=== PATIENT | female | born 1950 | race Caucasian/White ===

== ENCOUNTER 2018-09-09 11:47 | Emergency (ER) | payer OTHER ==
--- OUTSIDE RECORDS SUMMARY | 2018-09-09 11:49 | XMS REPORT | Summary of Care ---
:1950 Author Organization [facility] Address [address] [place] [id number]- Encounter HQ Encntr_alias(FIN) [id number] Date(s): 01/10/18 - 01/11/[address] [facility] [address] [place] [address], [address] [address]- [phone] Vital Signs No data available for this section Problem List Condition Effective Dates Status Health Status Informant CAD (coronary artery Resolved disease)(Confirmed) Edema(Confirmed) Resolved HTN (hypertension)(Confirmed) Resolved Morbid obesity(Confirmed) Active Allergies, Adverse Reactions, Alerts Substance Reaction Severity Status sulfa drugs Active azithromycin Active morphine Active Medications liothyronine 25 mcg oral tablet 25 microgram=1 tab, PO, Daily, # 90 tab, 0 Refill(s), Pharmacy: [facility] Start Date: 04/10/18 Status: OrderedNeurontin 100 mg oral capsule 100 mg=1 cap, PO, TID, # 90 cap, 3 Refill(s), Pharmacy: [facility] Start Date: 01/10/18 Status: Ordered Results No data available for this section Immunizations No data available for this section Procedures Procedure Date Related Diagnosis Body Site Status Cholecystectomy Completed Stent1 Completed BG BSO - Total abdominal hysterectomy and Completed bilateral salpingo-oophorectomy Tonsillectomy Completed 1x4 Social History Social History Type Response Smoking Status Heavy tobacco smoker; Exposure to Tobacco Smoke None; Cigarette Smoking Last 365 Days No; Reg Smoking Cessation Counseling No1 entered on: 06/03/16 1quit 9 yrs ago Assessment and Plan No data available for this section
--- OUTSIDE RECORDS SUMMARY | 2018-09-09 11:49 | XMS REPORT ---
:1950 Author Organization eClinicalWorks Care Team Providers Name Role Phone Ady Isabella Provider Role Unavailable Allergies No Known Allergies Problems Problem Type Condition Code Onset Dates Condition Status Problem Circulation problem I99.9 Active Problem Hyperlipidemia, unspecified E78.5 Active hyperlipidemia type Problem Hypothyroidism, unspecified type E03.9 Active Problem Hypertension, unspecified type I10 Active Problem Coronary artery disease involving I25.119 Active [place] coronary artery of [place] heart with angina pectoris Problem Diverticulitis K57.92 Active Problem Pain in right knee M25.561 Active Problem Hyperglycemia R73.9 Active Problem High cholesterol E78.00 Active Problem Pain in left knee M25.562 Active Problem Heart disease I51.9 Active Problem History of heart artery stent Z95.5 Active Medications No Known Medications Results No Known Results Summary Purpose eClinicalWorks Submission
--- OUTSIDE RECORDS SUMMARY | 2018-09-09 11:49 | XMS REPORT | Continuity of Care Document ---
:1950 Author Organization Interface Problems Problem Status Onset Classification Date Comments Source Date Reported CAD (<span Resolved Problem 07/31/2018 Medical ID="[id number] Group [id number]">Conf irmed</span >) Edema Resolved Problem 07/31/2018 Medical Group HTN (<span Resolved Problem 07/31/2018 Medical ID="[id number] Group [id number]">Conf irmed</span >) Morbid Active Problem 07/31/2018 Medical obesity Group Medications Medication Details Route Status Patient Ordering Order Source Instructions Provider Date liothyronine 25 25 Active MH mcg oral tablet microgram=1 018 Medical tab, PO, Group Daily, # 90 tab, 0 Refill(s), Pharmacy: [facility] gabapentin 100 100 mg=1 Active MH MG Oral Capsule cap, PO, 018 Medical [Neurontin] TID, # 90 Group cap, 3 Refill(s), Pharmacy: [facility] liothyronine 25 25 Active MH mcg oral tablet microgram=1 018 Medical tab, PO, Group Daily, # 90 tab, 0 Refill(s), Pharmacy: [facility] gabapentin 100 100 mg=1 Active MH MG Oral Capsule cap, PO, 018 Medical TID, # 90 Group cap, 0 Refill(s), Pharmacy: [facility] gabapentin 100 100 mg=1 Active MH MG Oral Capsule cap, PO, 018 Medical TID, # 90 Group cap, 0 Refill(s), Pharmacy: [facility] gabapentin 100 100 mg=1 No Longer MH MG Oral Capsule cap, PO, Active 018 Medical TID, # 90 Group cap, 0 Refill(s), Pharmacy: [facility] Allergies, Adverse Reactions, Alerts Substance Category Reaction Severity Reaction Status Date Comments Source type Reported sulfa drugs Assertion Drug Active allergy Medical Group azithromycin Assertion Drug Active allergy Medical Group morphine Assertion Drug Active allergy Medical Group Immunizations Immunization Date Given Site Status Last Updated Comments Source Results Order Results Value Reference Date Interpretation Comments Source Name Range Vital Signs Vital Sign Value Date Comments Source Encounters Location Location Encounter Encounter Reason Attending ADM DC Status Source Details Type Number For Provider Date Date Visit Outpatient [id number] [facility] [id number] [facility]SE [facility] [id number] MARY KAY 08/14 [facility] [id number] MARY KAY 06/03 [facility] [place] [facility] Phone [id number] 07/20 07/22 Primary Message /2017 [facility] Phone [id number] 08/24 08/26 Primary Message /2017 [facility] Phone [id number] 12/09 12/11 Primary Message /2017 Medical Care [facility] Phone [id number] 12/09 12/11 Primary Message /2017 [facility] Phone [id number] 12/26 12/28 Primary Message /2017 [facility] Phone [id number] 01/10 01/12 Primary Message /2017 [facility] Care [facility] Procedures Procedure Code Date Perfomer Comments Source Cholecystectomy [id number] Medical Group Stent<sup>1</sup> [id number] Medical Group BG BSO - Total [id number] Medical abdominal Group hysterectomy and bilateral salpingo-oophorectomy Tonsillectomy [id number] Medical Group
--- OUTSIDE RECORDS SUMMARY | 2018-09-09 11:50 | XMS REPORT ---
:1950 Author Organization eClinicalWorks Care Team Providers Name Role Phone Guillaume Castrejon Provider Role Unavailable Allergies, Adverse Reactions, Alerts Substance Reaction Event Type penicillin nausea Drug Allergy Azithromycin vomiting-rash Drug Allergy Sulfa Info Not Available Drug Allergy MORPHINE Info Not Available Drug Allergy Problems Problem Type Condition Code Onset Dates Condition Status Assessment Morbid obesity due to excess E66.01 Active calories Problem High cholesterol E78.00 Active Assessment Sciatica, left side M54.32 Active Problem History of heart artery stent Z95.5 Active Assessment Sciatica, right side M54.31 Active Problem Heart disease I51.9 Active Problem Diverticulitis K57.92 Active Problem Pain in right knee M25.561 Active Problem Sciatica, left side M54.32 Active Problem Primary osteoarthritis of left knee M17.12 Active Assessment Pain, joint, knee, left M25.562 Active Assessment Primary osteoarthritis of right M17.11 Active knee Problem Sciatica, right side M54.31 Active Assessment Primary osteoarthritis of left knee M17.12 Active Problem Osteoarthritis of right knee, M17.11 Active unspecified osteoarthritis type Problem Hyperglycemia R73.9 Active Problem Primary osteoarthritis of right M17.11 Active knee Problem Morbid obesity due to excess E66.01 Active calories Problem Coronary artery disease involving I25.119 Active [place] coronary artery of [place] heart with angina pectoris Problem Circulation problem I99.9 Active Assessment Pain, joint, knee, right M25.561 Active Problem Hypertension, unspecified type I10 Active Problem Pain in left knee M25.562 Active Problem Hypothyroidism, unspecified type E03.9 Active Problem Hyperlipidemia, unspecified E78.5 Active hyperlipidemia type Medications Medication Code Code Instructions Start End Status Dosage System Date Date Metoprolol [facility][NOTE 3] 66238962664 50 MG Orally Active 1 capsule Succinate Once a day Liothyronine [facility][NOTE 3] 89436722065 25 MCG Orally Active 1 tablet Sodium Once a day on an empty stomach Isosorbide ND 40314176542 60 MG Orally Active 1 tablet Mononitrate ER Twice daily in the morning Aspirin [facility][NOTE 3] 03958168898 81 MG Orally Active 1 tablet Once a day Multivitamin [facility][NOTE 3] 130[address] Orally Once Active AREDS daily 2>>>1 tablet Gabapentin [facility][NOTE 3] 07823565999 100 mg Orally Active 1 capsule Three times a day Levothyroxine [facility][NOTE 3] 48223413551 25 MCG Orally Active 1 tablet Sodium Once a day on an empty stomach in the morning Atorvastatin [facility][NOTE 3] 66250614903 10 MG Orally Active 1 tablet Calcium Once a day in evening Tylenol PM Extra [facility][NOTE 3] 85465459019 500-25 MG Active 1 tablet Strength Orally Once a at bedtime day as needed Results No Known Results Summary Purpose eClinicalWorks Submission
--- OUTSIDE RECORDS SUMMARY | 2018-09-09 11:50 | XMS REPORT ---
:1950 Author Organization eClinicalWorks Care Team Providers Name Role Phone Isabella Garsia Provider Role Unavailable Allergies No Known Allergies Problems Problem Type Condition Code Onset Dates Condition Status Problem Diverticulitis K57.92 Active Problem Primary osteoarthritis of right M17.11 Active knee Problem Hyperglycemia R73.9 Active Problem BMI 60.0-69.9, adult Z68.44 Active Problem Prediabetes R73.03 Active Problem Morbid obesity E66.01 Active Problem Sciatica, left side M54.32 Active Problem Primary osteoarthritis of left knee M17.12 Active Problem Osteoarthritis of right knee, M17.11 Active unspecified osteoarthritis type Problem Sciatica, right side M54.31 Active Problem History of heart artery stent Z95.5 Active Problem Heart disease I51.9 Active Problem Pain in left knee M25.562 Active Problem High cholesterol E78.00 Active Problem Hypothyroidism, unspecified type E03.9 Active Problem Hyperlipidemia, unspecified E78.5 Active hyperlipidemia type Problem Pain in right knee M25.561 Active Problem Hypertension, unspecified type I10 Active Problem Circulation problem I99.9 Active Problem Coronary artery disease involving I25.119 Active [place] coronary artery of [place] heart with angina pectoris Medications No Known Medications Results No Known Results Summary Purpose ViroproinicalWorks Submission
--- OUTSIDE RECORDS SUMMARY | 2018-09-09 11:50 | XMS REPORT ---
[...] Problem Coronary artery disease involving I25.119 Active [place] coronary artery of [place] heart with angina pectoris Medications Medication Code Code Instructions Start End Date Status Dosage System Date Gabapentin [facility] 99684835971 100 mg Orally Active as directed one tablet po in the am and 3 tablets po in the pm Results No Known Results Summary Purpose eClinicalWorks Submission
--- OUTSIDE RECORDS SUMMARY | 2018-09-09 11:50 | XMS REPORT ---
:1950 Author Organization eClinicalWorks Care Team Providers Name Role Phone Isabella Garsia Provider Role Unavailable Allergies, Adverse Reactions, Alerts Substance Reaction Event Type penicillin nausea Drug Allergy Azithromycin vomiting-rash Drug Allergy Sulfa Info Not Available Drug Allergy MORPHINE Info Not Available Drug Allergy Problems Problem Type Condition Code Onset Dates Condition Status Assessment Pain in right knee M25.561 Active Assessment Pain in left knee M25.562 Active Assessment BMI 60.0-69.9, adult Z68.44 Active Assessment Morbid obesity E66.01 Active Assessment Hypothyroidism, unspecified type E03.9 Active Problem Hypertension, unspecified type I10 Active Assessment History of heart artery stent Z95.5 Active Problem Coronary artery disease involving I25.119 Active [place] coronary artery of [place] heart with angina pectoris Assessment Coronary artery disease involving I25.119 Active [place] coronary artery of [place] heart with angina pectoris Problem Diverticulitis K57.92 Active Problem Primary osteoarthritis of right M17.11 Active knee Problem Hyperglycemia R73.9 Active Problem BMI 60.0-69.9, adult Z68.44 Active Problem Prediabetes R73.03 Active Assessment Hypertension, unspecified type I10 Active Problem Morbid obesity E66.01 Active Assessment Prediabetes R73.03 Active Problem Sciatica, left side M54.32 Active [...] Pain in right knee M25.561 Active Problem Circulation problem I99.9 Active Medications Medication Code Code Instructions Start End Status Dosage System Date Date Levothyroxine [facility] 62203346278 25 MCG Orally Active 1 tablet Sodium Once a day on an empty stomach in the morning Gabapentin [facility] 23009474287 100 mg Orally Active 1 capsule Three times a day Atorvastatin [facility] 78296735093 10 MG Orally Active 1 tablet Calcium Once a day in evening Metoprolol [facility] 54050437716 50 MG Orally Active 1 capsule Succinate Once a day Tylenol PM Extra [facility] 91348175546 500-25 MG Active 1 tablet Strength Orally Once a at bedtime day as needed Aspirin [facility] 36278642858 81 MG Orally Active 1 tablet Once a day Isosorbide [facility] 49698374898 60 MG Orally Active 1 tablet Mononitrate ER Twice daily in the morning Liothyronine [facility] 24576860003 25 MCG Orally Active 1 tablet Sodium Once a day on an empty stomach Multivitamin [facility] [address] Orally Once Active AREDS daily 2>>>1 tablet Results No Known Results Summary Purpose eClinicalWorks Submission
--- NOTE | 2018-09-09 15:15 | RAD REPORT ---
EXAM DESCRIPTION: RAD - Knee Left 3 View - 09/09/2018 2:50 pm CLINICAL HISTORY: pain post-fall/chronic knee pain COMPARISON: Knee Left 2 View dated 05/02/2018 FINDINGS: Prominent lateral compartment space narrowing is present. Mild medial compartment space al so seen. No fracture is seen. A small amount of suprapatellar joint fluid evident.
--- NOTE | 2018-09-09 15:16 | RAD REPORT ---
EXAM DESCRIPTION: RAD - Pelvis - 09/09/2018 2:50 pm CLINICAL HISTORY: fall Trauma, fall, pain COMPARISON: No comparisons FINDINGS: Osteoarthritic changes are present in both hips. No fracture or dislocation seen.
--- NOTE | 2018-09-09 15:20 | EDPHYS ---
Physician Documentation [facility] Name: Eva Ritter Age: 67 yrs Sex: Female : 1950 Arrival Date: 09/09/2018 Time: 11:48 Bed 11 Private MD: Isabella Garsia ED Physician Amado Wynne HPI: 09/09 14:14 This 67 yrs old Female presents to ER via Wheelchair with complaints of Fall rn Injury, Knee Pain. 14:14 Details of fall: The patient fell from an upright position. rn 15:01 Onset: The symptoms/episode began/occurred yesterday. Associated injuries: The patient rn sustained buttocks, left knee. Severity of symptoms: At their worst the symptoms were moderate, in the emergency department the symptoms are unchanged. The patient has not experienced similar symptoms in the past. Reports slipped fell on buttocks, reports hurt left knee, hurts to walk, doesn't think had direct trauma. . Historical: - Allergies: 12:17 Erythromycin; aa5 12:17 Morphine; aa5 12:17 Sulfa (Sulfonamide Antibiotics); aa5 - PMHx: 12:17 Hypertension; PreDiabetes; CAD; Conrad Knee pain; aa5 - PSHx: 12:17 right wrist; Hysterectomy; Cholecystectomy; cataracts; Heart stents; aa5 - Immunization history:: Flu vaccine is up to date. - Social history:: Smoking status: Patient/guardian denies using tobacco. - Ebola Screening: : No symptoms or risks identified at this time. - Family history:: not pertinent. - Hospitalizations: : No recent hospitalization is reported. ROS: 15:01 Constitutional: Negative for fever, chills, and weight loss, Back: Negative for injury rn and pain, MS/Extremity: + Left knee pain Skin: Negative for injury, rash, and discoloration, Neuro: Negative for headache, weakness, numbness, tingling, and seizure. Exam: 15:01 Constitutional: This is a well developed, well nourished patient who is awake, alert, rn and in no acute distress. MS/ Extremity: Pulses equal, no cyanosis. Painful ROM left knee, mild tenderness along lateral margin of knee and proximal fibula. Vital Signs: 12:14 BP 143 / 60; Pulse 77; Resp 18 S; Temp 99.8(TE); Pulse Ox 95% on R/A; Weight 129.27 kg aa5 (R); Height 5 ft. 6 in. (167.64 cm) (R); Pain 10/10; 15:42 BP 151 / 76 LA Sitting (auto/lg); Pulse 83; Pulse Ox 99% on R/A; jp3 12:14 Body Mass Index 46.00 (129.27 kg, 167.64 cm) aa5 MDM: 13:57 Patient medically screened. rn 15:18 Differential diagnosis: contusion, fracture, sprain, strain. Data reviewed: vital rn signs, nurses notes, radiologic studies, plain films, and as a result, I will discharge patient. Counseling: I had a detailed discussion with the patient and/or guardian regarding: the historical points, exam findings, and any diagnostic results supporting the discharge/admit diagnosis, radiology results, the need for outpatient follow up, to return to the emergency department if symptoms worsen or persist or if there are any questions or concerns that arise at home. Special discussion: I discussed with the patient/guardian in detail that at this point there is no indication for admission to the hospital. It is understood, however, that if the symptoms persist or worsen the patient needs to return immediately for re-evaluation. Further emergent ED testing is not indicated at this point in time. I discussed with the patient/guardian in detail the need to arrange with the PCP or specialist further outpatient testing, MRI. 09/09 12:18 Order name: Knee Left 3 View XRAY; Complete Time: 15:18 aa5 09/09 14:01 Order name: XRAY Pelvis; Complete Time: 15:18 rn 09/09 15:28 Order name: Santhosh Wrap; Complete Time: 15:53 rn Administered Medications: 16:00 Drug: [place] 5 mg-325 mg 1 tabs Route: PO; dm5 16:05 Follow up: Response: Medication administered at discharge. aa5 Disposition: 09/09/18 15:19 Discharged to Home. Impression: Sprain of other specified parts of left knee. - Condition is Stable. - Discharge Instructions: Contusion, Knee Effusion, Knee Sprain. - Prescriptions for Tylenol- Codeine #3 300-30 mg Oral Tablet - take 1 tablet by ORAL route every 6 hours As needed; 15 tablet. - Medication Reconciliation Form, Thank You Letter, Antibiotic Education, Prescription Opioid Use form. - Follow up: Private Physician; When: As needed; Reason: Recheck today's complaints, Re-evaluation by your physician. - Problem is new. - Symptoms have improved. Signatures: Dispatcher [employer] EDMS Jaqueline Perry, RN RN dm5 Amado Wynne MD MD rn Calderon, Audri, RN RN aa5 Corrections: (The following items were deleted from the chart) 16:08 15:19 09/09/2018 15:19 Discharged to Home. Impression: Sprain of other specified parts dm5 of left knee. Condition is Stable. Forms are Medication Reconciliation Form, Thank You Letter, Antibiotic Education, Prescription Opioid Use. Follow up: Private Physician; When: As needed; Reason: Recheck today's complaints, Re-evaluation by your physician. Problem is new. Symptoms have improved. rn
--- NOTE | 2018-09-09 15:20 | ER ---
Nurse's Notes [facility] Name: Eva Ritter Age: 67 yrs Sex: Female : 1950 Arrival Date: 09/09/2018 Time: 11:48 Bed 11 Private MD: Isabella Garsia Diagnosis: Sprain of other specified parts of left knee Presentation: 09/09 12:14 Presenting complaint: Patient states: "I fell on my bottom yesterday and hurt my left aa5 knee". Pt c/o pain to left knee and unable to bear weight. Transition of care: patient was not received from another setting of care. Onset of symptoms was August 2018. Risk Assessment: Do you want to hurt yourself or someone else? Patient reports no desire to harm self or others. Initial Sepsis Screen: Does the patient meet any 2 criteria? No. Patient's initial sepsis screen is negative. Does the patient have a suspected source of infection? No. Patient's initial sepsis screen is negative. Care prior to arrival: None. 12:14 Method Of Arrival: Wheelchair aa5 12:14 Acuity: SARKIS 4 aa5 Historical: - Allergies: 12:17 Erythromycin; aa5 12:17 Morphine; aa5 12:17 Sulfa (Sulfonamide Antibiotics); aa5 - PMHx: 12:17 Hypertension; PreDiabetes; CAD; Conrad Knee pain; aa5 - PSHx: 12:17 right wrist; Hysterectomy; Cholecystectomy; cataracts; Heart stents; aa5 - Immunization history:: Flu vaccine is up to date. - Social history:: Smoking status: Patient/guardian denies using tobacco. - Ebola Screening: : No symptoms or risks identified at this time. - Family history:: not pertinent. - Hospitalizations: : No recent hospitalization is reported. Screenin:00 Abuse screen: Denies threats or abuse. Nutritional screening: No deficits noted. aa5 Tuberculosis screening: No symptoms or risk factors identified. 14:00 Fall Risk None identified. aa5 Assessment: 14:00 General: Appears uncomfortable, Behavior is calm, cooperative. Pain: Complains of pain aa5 in left knee Noted to be resistant to movement. Neuro: Level of Consciousness is awake, alert, obeys commands, Oriented to person, place, time, situation. Cardiovascular: Patient's skin is warm and dry. Respiratory: Airway is patent Respiratory effort is even, unlabored, Respiratory pattern is regular, symmetrical. GI: No signs and/or symptoms were reported involving the gastrointestinal system. : No signs and/or symptoms were reported regarding the genitourinary system. EENT: No signs and/or symptoms were reported regarding the EENT system. Derm: Skin is pink, warm \\T\\ dry. Musculoskeletal: Reports pain in left knee. 15:30 Reassessment: SCOTT bandage applied to left knee by biosolids management technician . aa5 16:05 Reassessment: Patient is alert, oriented x 3, equal unlabored respirations, skin aa5 warm/dry/pink. Vital Signs: 12:14 BP 143 / 60; Pulse 77; Resp 18 S; Temp 99.8(TE); Pulse Ox 95% on R/A; Weight 129.27 kg aa5 (R); Height 5 ft. 6 in. (167.64 cm) (R); Pain 10/10; 15:42 BP 151 / 76 LA Sitting (auto/lg); Pulse 83; Pulse Ox 99% on R/A; jp3 12:14 Body Mass Index 46.00 (129.27 kg, 167.64 cm) aa5 ED Course: 11:48 Patient arrived in ED. mr 11:49 Isabella Garsia MD is Private Physician. mr 12:14 Triage completed. aa5 12:14 Arm band placed on. aa5 12:14 Patient has correct armband on for positive identification. aa5 13:57 Amado Wynne MD is Attending Physician. rn 13:59 Laura Kaur, MCKENNA is Primary Nurse. aa5 14:41 X-ray completed. Portable x-ray completed in exam room. Patient tolerated procedure la2 well. 14:50 Knee Left 3 View XRAY In Process Unspecified. EDMS 14:50 XRAY Pelvis In Process Unspecified. EDMS 16:05 No provider procedures requiring assistance completed. Patient did not have IV access aa5 during this emergency room visit. Administered Medications: 16:00 Drug: [place] 5 mg-325 mg 1 tabs Route: PO; dm5 16:05 Follow up: Response: Medication administered at discharge. aa5 Outcome: 15:19 Discharge ordered by . rn 16:05 Discharged to home via wheelchair, with family. aa5 16:05 Condition: stable 16:05 Discharge instructions given to patient, Instructed on discharge instructions, follow up and referral plans. medication usage, Demonstrated understanding of instructions, follow-up care, medications, Prescriptions given X 1. 16:08 Patient left the ED. dm5 Signatures: Dispatcher [employer] EDJaqueline Cisse, RN RN dm5 Iva Pendleton mr Wynne, MD MD mckenna Fischer Audri, RN RN aa5 Nahomi Bourne2 Emilio Aguilar jp3
[2018-09-09] MEDS ORDERED: HYDROCODONE/APAP 5/325 MG TAB ONE (16:10)
== END 2018-09-09 16:08 | disposition home or self-care (01) ==
LOC: ER 11:47
DX: S83.8X2A Sprain of other specified parts of left knee, initial encounter (principal); W01.0XXA Fall on same level from slipping, tripping and stumbling without subsequent striking against object, initial encounter; I10 Essential (primary) hypertension; R73.03 Prediabetes; Z88.1 Allergy status to other antibiotic agents; Z88.5 Allergy status to narcotic agent; Z88.2 Allergy status to sulfonamides
CPT/HCPCS: 72170; 99283